=== PATIENT | female | born 1955 | race Caucasian/White ===

== ENCOUNTER → 2016-10-31 | Outpatient (CLI) | payer OTHER | END | disposition home or self-care (01) | LOC: SMA 07:47 | PROVIDERS: ATTEND Specialist | DX: Z12.31 Encounter for screening mammogram for malignant neoplasm of breast (principal) | CPT/HCPCS: G0202 ==

== ENCOUNTER 2017-10-22 08:13 | Outpatient (CLI) | payer OTHER | END 2017-10-22 21:07 | disposition home or self-care (01) | LOC: SMA 08:13 | PROVIDERS: ATTEND Specialist | DX: Z12.31 Encounter for screening mammogram for malignant neoplasm of breast (principal) | CPT/HCPCS: 77067 ==

== ENCOUNTER 2018-11-13 08:23 | Outpatient (CLI) | payer OTHER | END 2018-11-13 20:58 | disposition home or self-care (01) | LOC: SMA 08:23 | PROVIDERS: ATTEND Specialist | DX: Z12.31 Encounter for screening mammogram for malignant neoplasm of breast (principal) | CPT/HCPCS: 77067 ==

== ENCOUNTER 2019-12-07 14:00 | Outpatient (CLI) | payer OTHER | END 2019-12-07 20:14 | disposition home or self-care (01) | LOC: SMA 14:00 | PROVIDERS: ATTEND Specialist | DX: Z12.31 Encounter for screening mammogram for malignant neoplasm of breast (principal) | CPT/HCPCS: 77067 ==

== ENCOUNTER 2021-01-18 13:40 | Outpatient (CLI) | payer OTHER | END 2021-01-18 19:46 | disposition home or self-care (01) | LOC: SMA 13:40 | PROVIDERS: ATTEND Specialist | DX: Z12.31 Encounter for screening mammogram for malignant neoplasm of breast (principal) | CPT/HCPCS: 77067 ==

== ENCOUNTER 2022-02-15 14:39 | Outpatient (CLI) | payer OTHER | END 2022-02-15 20:34 | disposition home or self-care (01) | LOC: SMA 14:39 | PROVIDERS: ATTEND Specialist | DX: Z12.31 Encounter for screening mammogram for malignant neoplasm of breast (principal) | CPT/HCPCS: 77067 ==

== ENCOUNTER 2023-03-01 08:29 | Outpatient (CLI) | payer OTHER | END 2023-03-01 18:24 | disposition home or self-care (01) | LOC: SMA 08:29 | PROVIDERS: ATTEND Physician Assistant | DX: Z12.31 Encounter for screening mammogram for malignant neoplasm of breast (principal) | CPT/HCPCS: 77067 ==